=== PATIENT | male | born 1975 | race Caucasian/White ===

== ENCOUNTER 2017-12-11 18:39 | Emergency (ER) | payer OTHER ==
[2017-12-11] MEDS ORDERED: ACETAMINOPHEN TAB 500 MG TAB PO STA (19:19)
[2017-12-11] MEDS ORDERED: DIPH,PERTUS(ACELL)TETVAC-LF 0.5 ML VIAL IM ONE (19:21)
[2017-12-11] MEDS ORDERED: LIDOCAINE 1% INJ 10MG/ML (20 ML MDV) SQ ONE (19:24)
[2017-12-11] MEDS ORDERED: BACITRACIN OINT 1 EACH PACKET TOPICAL ONE (19:24)
--- NOTE | 2017-12-11 19:24 | ED ---
General Adult HPI - General Chief complaint: Wound/Laceration Stated complaint: Hand Lac Time Seen by Provider: 12/11/17 19:05 Source: patient, RN notes reviewed Mode of arrival: ambulatory Limitations: no limitations - History of Present Illness Initial comments: This is a 42-year-old male with no past medical history who presents today for chief complaint of lacerations to the right hand 2 hours. Patient states that around 5:30 PM this evening he was working on a crutch door, when the metal spring flew off cutting his right hand in multiple locations. Patient immediately wrapped the hand and had his bring him to emergency department , He did not clean the wound or take any pain medication. The patient is on tramadol at home. Patient denies any numbness, tingling, paresthesias, muscle weakness, loss of range of motion, or loss of sensation in the digits of the right hand. Patient missed to pain at the area of the lacerations, that increases with movement. Patient denies any recent fever, chills, shortness of breath, chest pain, back pain, abdominal pain, nausea or vomiting, numbness or tingling, dysuria or hematuria, constipation or diarrhea, headaches or visual changes, or any other complaints. Pt cannot recall his last tetanus. - Related Data Allergies Allergy/AdvReac Type Severity Reaction Status Date / Time aspirin Allergy Unknown Verified 12/11/17 18:59 Review of Systems ROS Statement: Those systems with pertinent positive or pertinent negative responses have been documented in the HPI. ROS Other: All systems not noted in ROS Statement are negative. Constitutional: Denies: fever, chills ENT: Denies: ear pain Respiratory: Denies: cough, dyspnea Cardiovascular: Denies: chest pain, palpitations Gastrointestinal: Denies: abdominal pain, nausea, vomiting, diarrhea, constipation Genitourinary: Denies: urgency, dysuria, frequency Musculoskeletal: Denies: back pain Skin: Reports: as per HPI. Denies: rash, lesions Neurological: Denies: headache, weakness, numbness, paresthesias, confusion, abnormal gait Past Medical History Past Medical History: Hyperlipidemia History of Any Multi-Drug Resistant Organisms: None Reported Past Surgical History: Cholecystectomy Additional Past Surgical History / Comment(s): eye surgery Past Psychological History: Depression Smoking Status: Current every day smoker Past Alcohol Use History: Rare Past Drug Use History: None Reported General Exam - General Exam Comments Initial Comments: General: The patient is awake and alert, in no distress, and does not appear acutely ill. Eye: Pupils are equal, round and reactive to light, extra-ocular movements are intact. No nystagmus. There is normal conjunctiva bilaterally. No signs of icterus. Ears, nose, mouth and throat: There are moist mucous membranes and no oral lesions. Neck: The neck is supple, there is no tenderness or JVD. Cardiovascular: There is a regular rate and rhythm. No murmur, rub or gallop is appreciated. Respiratory: Lungs are clear to auscultation, respirations are non-labored, breath sounds are equal. No wheezes, stridor, rales, or rhonchi. Musculoskeletal: Pt has tenderess over the areas of lacerations. Full ROM and strength of all 5 digits of the right hand including MCP, PIP and DIP joints. There is full sensation of all five digits of the hands b/l. Capillary refill is <2 seconds of the hands b/l. Radial pulses equal bilaterally 2+. Neurological: A&O x 3. CN II-XII intact, There are no obvious motor or sensory deficits. Coordination appears grossly intact. Speech is normal. Skin: Skin is warm and dry and no rashes. There are 3 lacerations #1- 1/2cm to the tip of the right index finger, superficial avulsion with flap . #2 is a linear 1.5cm laceration at the base of the right index finger. #3 is a v shaped ~3-4 cm total with flap. All of the lacerations show no evidence of FB, and there is no exposure of underlying structures or tendons. Psychiatric: Cooperative, appropriate mood & affect, normal judgment. Limitations: no limitations Course Vital Signs 12/11/17 12/11/17 18:56 21:16 Temperature 98.3 F 98 F Pulse Rate 75 69 Respiratory 20 18 Rate Blood Pressure 153/85 130/80 O2 Sat by Pulse 98 97 Oximetry Procedures - Laceration Laceration #1 Consent Obtained: verbal consent Time Out Performed: Yes Indication: laceration Site: hand (right index finger tip, 1/2 cm alvulsion with flap) Description: flap, avulsion Depth: simple, single layer Anesthetic Used: lidocaine 1% Anesthesia Technique: local infiltration Amount (mls): 3 Pre-repair: wound explored, irrigated extensively, deep structures intact Type of Sutures: nylon Size of Sutures: 5-0 Number of Sutures: 1 Technique: simple, interrupted Patient Tolerated Procedure: well, no complications Laceration #2 Consent Obtained: verbal consent Time Out Performed: Yes Site: hand (base of right index) Size (cm): 2 Description: linear Depth: simple, single layer Anesthetic Used: lidocaine 1% Anesthesia Technique: local infiltration Amount (mls): 4 Pre-repair: wound explored, irrigated extensively, deep structures intact Type of Sutures: nylon Size of Sutures: 5-0 Number of Sutures: 3 Technique: simple, interrupted Patient Tolerated Procedure: well, no complications Laceration #3 Consent Obtained: verbal consent Time Out Performed: Yes Site: hand (thenar eminenace of right thumb) Description: flap, irregular Depth: simple, single layer Anesthetic Used: lidocaine 1% Anesthesia Technique: local infiltration Amount (mls): 4 Pre-repair: wound explored, irrigated extensively, deep structures intact Type of Sutures: nylon Size of Sutures: 5-0 Number of Sutures: 4 Technique: simple, interrupted Patient Tolerated Procedure: well, no complications Medical Decision Making - Medical Decision Making Pt received TDap. XR of the right hand (-) for acute fx. All wound soaked with tap water to remove dirt/oil from hands as pt was working on cars earlier in the day. All lacerations cleansed with iodine and then anesthesized locally with 1% lidocaine with wound infiltration. Laceration #1 1-5.0 nylon suture, Laceration #2 3-5.0 nylon sutures and laceration #3 4-5.0 nylon sutures. Went without complications. Covered with bacitracin and bandage. Case was discussed in detail with Dr. Izquierdo. Pt was told to f/u for suture removal in 10 days. Pt was educated on signs of infection. Pt was educated on proper laceration and suture care. Pt was instructed to take over the counter pain medications for pain releif as needed. Pt understood and was discharged in stable condition. Disposition Clinical Impression: Laceration Disposition: HOME SELF-CARE Condition: Good Instructions: Care For Your Stitches (ED), Laceration (ED), Finger Laceration ( ED) Additional Instructions: Please use over the counter medication for pain as discussed. Please f/u for suture removal in 10 days. Please follow-up with family doctor in the next 2 days of symptoms have not improved. Please return to emergency room if the symptoms increase or worsen or for any other concerns. Is patient prescribed a controlled substance at d/c from ED?: No Referrals: Nonstaff,Physician [Primary Care Provider] - 1-2 days Time of Disposition: 21:15
--- NOTE | 2017-12-11 19:55 | XR ---
EXAMINATION TYPE: XR hand complete RT DATE OF EXAM: 12/11/2017 COMPARISON: NONE HISTORY: Lacerations. Pain TECHNIQUE: 3 views FINDINGS: I see no fracture nor dislocation. Metacarpals are intact. There is no sign of radiopaque f oreign body. There are no erosions. IMPRESSION: Negative right hand exam.
[2017-12-11 21:22] VITALS: BP 130/80; PULSE 69; RESP 18; TEMP 98
== END 2017-12-11 21:21 | disposition home or self-care (01) ==
LOC: EC 18:39
DX: S61.210A Laceration without foreign body of right index finger without damage to nail, initial encounter (principal); S61.411A Laceration without foreign body of right hand, initial encounter; F17.200 Nicotine dependence, unspecified, uncomplicated; Z88.6 Allergy status to analgesic agent; Z23 Encounter for immunization; W45.8XXA Other foreign body or object entering through skin, initial encounter; Y93.89 Activity, other specified
CPT/HCPCS: 73130; 90715; 99283; 12002; 90471; J2001